=== PATIENT | female | born 1955 | race Caucasian/White ===

== ENCOUNTER 2021-11-07 09:19 | Outpatient (CLI) | payer MEDICARE, OTHER | END 2021-11-07 09:20 | disposition home or self-care (01) | LOC: DTY/OP 09:19 | PROVIDERS: ATTEND Surgery | DX: E66.01 Morbid (severe) obesity due to excess calories (principal); Z71.3 Dietary counseling and surveillance | CPT/HCPCS: 97802 ==

== ENCOUNTER 2021-12-14 09:45 | Outpatient (CLI) | payer MEDICARE, OTHER ==
[2021-12-14 10:45] LABS: #Eosinphils 0.2 10x3/uL (0.0-0.5); #Monocytes 0.6 10x3/uL (0.0-1.1); #Neutrophils 4.3 10x3/uL (1.5-8.4); %Basophils 0.6 % (0.0-2.0); %Eosinophils 2.1 % (0.0-6.0); %Lymphocytes 29.3 % (18.0-47.0); %Monocytes 8.2 % (0.0-10.0); %Neutrophils 59.5 % (40.0-75.0); Mean Corpuscular HGB CONC 34.7 g/dL (32.0-36.0); Mean Corpuscular Hemoglobin 31.5 pg (27.0-33.0); Mean Corpuscular Volume 90.8 fl (81.6-98.3); Mean Platelet Volume 10.2 fl (7.4-10.4); Platelet Count 226 10x3/uL (150-450); RBC Distribution Width 13.5 % (11.5-14.5); Red Blood Cell (RBC) Count 4.45 10x6/uL (3.90-5.03); White Blood Cell (WBC) Count 7.2 10x3/uL (3.5-10.5)
[2021-12-14 11:13] LABS: ALT (SGPT) 14 U/L (8-55); AST (SGOT) 18 U/L (5-34); Albumin 4.3 g/dL (3.4-4.8); Alkaline Phosphatase 78 U/L (40-110); Anion Gap 13 mmol/L (10-20); BUN (Urea Nitrogen) 25 mg/dL (9.8-20.1); Bilirubin, Total 0.5 mg/dL (0.2-1.2); Calc. Creatinine Clearance 0 mL/min (70-130); Calcium 9.2 mg/dL (7.8-10.44); Carbon Dioxide 24 mmol/L (23-31); Chloride 105 mmol/L (98-107); Estimated GFR 73; Globulin 2.4 g/dL (2.4-3.5); Glucose 96 mg/dL (80-115); Potassium 4.2 mmol/L (3.5-5.1); Protein, Total 6.7 g/dL (5.8-8.1); Sodium 138 mmol/L (136-145)
[2021-12-14 14:27] LABS: Hemoglobin A1c 5.1 % (4.0-6.0)
== END 2021-12-14 09:46 | disposition home or self-care (01) ==
LOC: LABBT 09:45
PROVIDERS: ATTEND Surgery
DX: Z01.818 Encounter for other preprocedural examination (principal); I10 Essential (primary) hypertension; K21.9 Gastro-esophageal reflux disease without esophagitis; Z68.39 Body mass index [BMI] 39.0-39.9, adult; Z20.822 Contact with and (suspected) exposure to COVID-19
CPT/HCPCS: 71046; 80053; 83036; 85025; 87811; 93005; 93010

== ENCOUNTER 2021-12-14 10:15 | Inpatient (IN) | payer MEDICARE ==
[2021-12-19] MEDS ORDERED: Heparin 5,000 UNITS/ML VIAL ONE (08:16)
[2021-12-19] MEDS ORDERED: Ketamine 50 MG/ML (10ML VIAL) ONE (08:53)
[2021-12-19] MEDS ORDERED: SUGAMMADEX SODIUM 200 MG/2 ML VIAL ONE (08:53)
[2021-12-19] MEDS ORDERED: fentaNYL Citrate/PF 100 MCG/2 ML SYRINGE ONE (08:53)
[2021-12-19] MEDS ORDERED: Bupivacaine/Epinephrine 0.25% 30 ML VIAL ONE (08:54)
[2021-12-19] MEDS ORDERED: CEFAZOLIN 2 GM VIAL ONE (09:00)
[2021-12-19] MEDS ORDERED: Sodium Chloride 0.9% 100 ML ONE (09:00)
[2021-12-19] MEDS ORDERED: Glycopyrrolate 0.2 MG/ML 5 ML SYRINGE ONE (09:18)
[2021-12-19] MEDS ORDERED: Dexamethasone 20 MG/5 ML VIAL ONE (09:18)
[2021-12-19] MEDS ORDERED: Rocuronium Bromide 10 MG/ML (10ML VIAL) ONE (09:18)
[2021-12-19] MEDS ORDERED: Lidocaine 1% MPF 2 ML VIAL ONE (09:18)
[2021-12-19] MEDS ORDERED: PROPOFOL 200 MG/20 ML VIAL ONE (09:18)
[2021-12-19] MEDS ORDERED: NEOSTIGMINE 3 MG/3 ML SYR 3 MG/3 ML SYRINGE ONE (09:18)
[2021-12-19] MEDS ORDERED: ePHEDrine 50 MG/ML VIAL ONE (09:18)
[2021-12-19] MEDS ORDERED: Ondansetron PF 4 MG/2 ML Vial ONE (09:18)
[2021-12-19] MEDS ORDERED: HYDROmorphone 0.5 MG/0.5 ML SYRINGE ONE (11:15)
[2021-12-19] MEDS ORDERED: Promethazine HCl 25 MG/ML VIAL IVPB PRN (11:34)
[2021-12-19] MEDS ORDERED: Ondansetron HCl/PF 4 MG/2 ML Vial IVP PRN (11:34)
[2021-12-19] MEDS ORDERED: diphenhydrAMINE 25 MG CAP PO PRN (11:34)
[2021-12-19] MEDS ORDERED: Naloxone HCl 0.4 mg/ml Vial IV PRN (11:34)
[2021-12-19] MEDS ORDERED: fentaNYL Citrate/PF 2,000 MCG in Sodium Chloride 0.9% 60 ML IV PRN (11:34)
[2021-12-19] MEDS ORDERED: Promethazine HCl 25 MG/ML VIAL IM PRN ×3 (11:34→11:37)
[2021-12-19] MEDS ORDERED: Ondansetron PF 4 MG/2 ML Vial IVP PRN ×2 (11:34→11:37)
[2021-12-19] MEDS ORDERED: diphenhydrAMINE 50 MG/ML VIAL IVP PRN ×2 (11:34→11:37)
[2021-12-19] MEDS ORDERED: diphenhydrAMINE 50 MG/ML VIAL IM PRN (11:34)
[2021-12-19] MEDS ORDERED: Dextrose 5% in Water 1,000 ML IV PRN (11:37)
[2021-12-19] MEDS ORDERED: hydrALAZINE 20 MG/ML VIAL SLOW IVP PRN (11:37)
[2021-12-19] MEDS ORDERED: Hydrocodone-Acetamin 15 ML UDCUP PO PRN (11:37)
[2021-12-19] MEDS ORDERED: Dextrose 50% Abboject 50 ML SYRINGE SLOW IVP PRN (11:37)
[2021-12-19] MEDS ORDERED: Communication Order-Pharmacy FS SCH (11:45)
[2021-12-19] MEDS ORDERED: Fentanyl 100 MCG/2 ML VIAL ONE (11:50)
[2021-12-19] MEDS ORDERED: D5 1/2 NS w/20 mEq KCL 1,000 ML ONE (12:09)
[2021-12-19] MEDS: D5 1/2 NS w/20 mEq KCL 1,000 ML IV SCH ×2 (12:15→21:59)
[2021-12-19 17:41] VITALS: BMI 36.8
[2021-12-20] MEDS: D5 1/2 NS w/20 mEq KCL 1,000 ML IV SCH (04:54)
[2021-12-20 05:26] LABS: #Lymphocytes 1.8 thou/uL (1.20-3.40); #Monocytes 0.8 thou/uL (0.11-0.59); #Neutrophils 7.3 thou/uL (1.40-6.50); %Eosinophils 0.2 % (0.0-10.0); %Lymphocytes 18.6 % (21.0-51.0); %Monocytes 7.6 % (0.0-10.0); %Neutrophils 73.6 % (42.0-75.0); Hemoglobin 12.9 g/dL (12.0-16.0); Mean Corpuscular HGB CONC 33.5 g/dL (32.0-36.0); Mean Corpuscular Hemoglobin 32.3 pg (27.0-31.0); Mean Corpuscular Volume 96.5 fL (78.0-98.0); Mean Platelet Volume 8.1 fL (7.4-10.4); Platelet Count 195 thou/uL (130-400); RBC Distribution Width 12.6 % (11.5-14.5); Red Blood Cell (RBC) Count 3.99 mill/uL (4.20-5.40); White Blood Cell (WBC) Count 9.9 thou/uL (4.8-10.8)
[2021-12-20 05:43] LABS: Anion Gap 10 mmol/L (10-20); BUN (Urea Nitrogen) 9 mg/dL (9.8-20.1); Calc. Creatinine Clearance 96 mL/min (70-130); Carbon Dioxide 26 mmol/L (23-31); Chloride 105 mmol/L (98-107); Estimated GFR 74; Glucose 112 mg/dL (80-115); Potassium 3.8 mmol/L (3.5-5.1); Sodium 137 mmol/L (136-145)
[2021-12-20 08:02] VITALS: BP 136/84; TEMP 98.4
[2021-12-20] MEDS ORDERED: Lisinopril 10 MG TAB PO SCH (09:00)
[2021-12-20] MEDS ORDERED: Pantoprazole 40 MG VIAL IVP SCH (09:00)
[2021-12-20] MEDS ORDERED: Enoxaparin Sodium 40 MG/0.4 ML SYRINGE SC SCH (09:00)
== END 2021-12-20 11:55 | disposition home or self-care (01) | DRG 621 ==
LOC: SURG A 12-19 06:51
PROVIDERS: ADMIT Surgery; ATTEND Surgery
PROC: 0D160Z9 Bypass Stomach to Duodenum, Open Approach (ICD-10-PCS; principal; 2021-12-19)
PROC: 8E0W0CZ Robotic Assisted Procedure of Trunk Region, Open Approach (ICD-10-PCS; 2021-12-19)
DX: E66.01 Morbid (severe) obesity due to excess calories (principal); Z20.822 Contact with and (suspected) exposure to COVID-19; I10 Essential (primary) hypertension; K21.9 Gastro-esophageal reflux disease without esophagitis; Z68.39 Body mass index [BMI] 39.0-39.9, adult; Z79.899 Other long term (current) drug therapy
CPT/HCPCS: 36415; 80048; 85025; C9113; J0690; J1100; J1170; J1644; J1650; J2405; J2704; J3010; J3480; J3490

== ENCOUNTER 2023-10-18 07:49 | Outpatient (CLI) | payer MEDICARE ==
[2023-10-18] MEDS ORDERED: Iopamidol 370 76% 100 ML VIAL ONE (12:20)
== END 2023-10-18 07:50 | disposition home or self-care (01) ==
LOC: CT 07:49
PROVIDERS: ATTEND Surgery
DX: R10.9 Unspecified abdominal pain (principal); K80.20 Calculus of gallbladder without cholecystitis without obstruction; K82.8 Other specified diseases of gallbladder; Z98.84 Bariatric surgery status
CPT/HCPCS: 74177; 82565; Q9967